=== PATIENT | male | born 1945 | race Caucasian/White ===

== ENCOUNTER 2021-03-21 12:46 | Emergency (ER) | payer MEDICARE ==
[~2021-03-21] VITALS: Ht 180.3 cm; Wt 91.0 kg
[2021-03-21] MEDS ORDERED: DIPH,PERTUSS(ACELL),TET VAC/PF 0.5 ML SYRINGE. VAX IM ONE (13:15)
--- NOTE | 2021-03-21 13:54 | PHYS DOC ---
Past Medical History Past Surgical History: Other Additional Past Surgical Histo: both legs, General Adult EDM: Chief Complaint: LACERATION/AVULSION HPI: HPI: Patient is a 75-year-old male who presents to the emergency department complaining of a laceration to his left pointer finger tip, patient reports he was sawing some boards with a table saw at approximately 1240 this morning when the sawblade caught his left pointer finger tip. Patient reports he immediately washed with soap and water and came to the emergency department for evaluation. Patient reports his pain at a 3 out of 10. Patient reports his last tetanus immunization was greater than 5 years ago, states he takes metoprolol for blood pressure and atorvastatin for hypercholesterol, takes no other medications at home. Has not taken pain medications for this current injury. Patient denies allergies to medications. Denies other physical complaints or physical concerns. Review of Systems: Review of Systems: 14 body systems of review of systems have been reviewed. See HPI for pertinent positives and negative responses, otherwise all other systems are negative, nonpertinent or noncontributory. Constitutional: Negative except as outlined in HPI above. Skin: Negative except as outlined in HPI above. Eyes: Negative except as outlined in HPI above. HENT: Negative except as outlined in HPI above. Respiratory: Negative except as outlined in HPI above. Cardiovascular: Negative except as outlined in HPI above. GI: Negative except as outlined in HPI above. : Negative except as outlined in HPI above. Musculoskeletal: Negative except as outlined in HPI above. Integument: Negative except as outlined in HPI above. Neurologic: Negative except as outlined in HPI above. Endocrine: Negative except as outlined in HPI above. Lymphatic: Negative except as outlined in HPI above. Psychiatric: Negative except as outlined in HPI above. Heart Score: C/O Chest Pain: No Risk Factors: Risk Factors: DM, Current or recent (<one month) smoker, HTN, HLP, family history of CAD, obesity. Risk Scores: Score 0 - 3: 2.5% MACE over next 6 weeks - Discharge Home Score 4 - 6: 20.3% MACE over next 6 weeks - Admit for Clinical Observation Score 7 - 10: 72.7% MACE over next 6 weeks - Early Invasive Strategies Current Medications: Current Medications Medications (Trade) Dose Ordered Sig/Oly Start Time Stop Time Status Last Admin Dose Admin Diphtheria/ Tetanus/Acell Pertussis (ADACEL TDap SYRINGE) 0.5 ml ONCE ONCE 03/21/21 13:15 03/21/21 13:18 DC 03/21/21 13:31 0.5 ML Allergies: Allergies: Allergies Coded Allergies Type Severity Reaction Last Updated Verified No Known Drug Allergies 03/21/21 No Physical Exam: PE: Constitutional: Well developed, well nourished, no acute distress, non-toxic appearance. 75-year-old male holding a bandage around his left index fingertip otherwise in no apparent distress. HENT: Normocephalic, atraumatic. Eyes: Conjunctiva normal, no discharge. Neck: Normal range of motion, no stridor. Cardiovascular: No cyanosis appreciated, distal cap refill less than 2 seconds. Lungs & Thorax: Patient is in no respiratory distress, no audible adventitious lung sounds appreciated. Abdomen: Nontender, no abnormalities noted. Skin: Warm, dry, no erythema, no rash. See extremity note for focused skin examination. Back: No tenderness, no deformities. Extremities: No tenderness, no cyanosis, no clubbing, ROM intact, no edema. Except for left pointer finger distal fingertip medial aspect has 1 cm avulsion injury without obvious bony involvement. Partial fingernail avulsion. Bleeding controlled with bandage. Distal cap refill less than 2 seconds. 2+ radial pulse of the left and right upper extremity. No crepitus appreciated with palpation, full flexion-extension of left index finger tip finger joints. Neurologic: Alert and oriented X 3, normal motor function, normal sensory function, no focal deficits noted. Psychologic: Affect normal, judgement normal, mood normal. Current Patient Data: Vital Signs: Vital Signs Date Time Temp Pulse Resp B/P (MAP) Pulse Ox O2 Delivery O2 Flow Rate FiO2 03/21/21 12:50 98.3 72 18 159/83 (108) 96 Room Air 98.3 EKG: EKG: [] Radiology/Procedures: Radiology/Procedures: REASON: att. pointer finger distal tip avulsion injury PROCEDURE: FINGER(S) LEFT XR FINGER(S)_LEFT 2+VIEWS_RT Clinical indications: Reason: att. pointer finger distal tip avulsion injury / Spl. Instructions: / History: Findings: There is a small defect of the medial aspect of the distal tuft of the second distal phalanx. No fracture is seen elsewhere. No dislocation is evident. 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 IMPRESSION: Small osseous defect of the medial aspect of the distal tuft of the second distal phalanx in association with a soft tissue amputation injury of the medial tip of the second digit. No radiopaque foreign body of the second digit. Electronically signed by: Blaine Vásquez MD (03/21/2021 2:05 PM) [id number] Course & Med Decision Making: Course & Med Decision Making Pertinent Labs and Imaging studies reviewed. (See chart for details) 75-year-old male, vital signs reviewed, presents emergency department concerning a table saw injury to the left pointer finger distal tip. Physical examination and presentation consistent with patient's explanation of events. This is a s kin avulsion injury with partial fingernail involvement, will order x-ray to evaluate bony structures of the finger. Will bring patient's tetanus immunization up-to-date today in the emergency department with Adacel Tdap. Offered p.o. pain medication for 3 out of 10 pain, patient refused at this time. The avulsion injury wound is no longer bleeding at this time. Called and discussed patient case and ED work-up with [facility]'s hand surgeon specialist Dr. Naik who recommends soaking in Betadine solution for 15 minutes, started on p.o. Keflex 4 times daily x10 days, partial closure of avulsion injury to assist bringing wound edges together, dressed with tube gauze, give his office information to patient to make appointment to be seen tomorrow or the next day. Discussed Dr. Naik's discharge and follow-up planning with patient who is amenable to this. See laceration repair note. Patient started on 500 mg Keflex p.o. in the ED today. Patient gave verbal understanding of suture care/wound care, strict follow-up with Dr. Naik tomorrow we will call for appointment, return to ER precautions or concerns, discussed with the patient all findings and diagnostic testing as well as the need to follow-up with their primary care provider for further evaluation and treatment or return to the ED if any new or worsening symptoms. Strict return precautions were also discussed at length, the patient voiced understanding and agreement with the discharge planning. The patient was nontoxic in appearance, in no apparent distress, and hemodynamically stable at the time of disposition. Dragon Disclaimer: Dragon Disclaimer: This electronic medical record was generated, in whole or in part, using a voice recognition dictation system. Laceration Repair Lac Repair Indication: Avulsion laceration of left #2 digit fingertip medial aspect. Time: 1500 Confirmed: Patient, procedure, side, and site correct. Consent: Patient, has given verbal consent. Description/repair Procedure: The patient was placed in the appropriate position and anesthesia around the laceration was achieved with a digital block using 6 cc of 2% lidocaine without epinephrine. The area was first soaked in Betadine solution for 15 minutes, after a 15-minute air dry, the digital block was achieved, the avulsion/laceration site was vigorously irrigated with 1000 cc normal saline. The laceration was explored for foreign bodies, there were no visual foreign bodies appreciated.. The avulsion/laceration edges were brought together loosely with 3 interrupted sutures using 4-0 nylon. The wound area was then dressed with bacitracin, nonadherent gauze, tube gauze by ED nursing staff. Complexity: Single layer. Post procedure exam: Circulation, motor, sensory examination intact, bleeding controlled. Total repaired wound length: 1 cm diameter. Other Items: The patient's tetanus immunization was brought up-to-date today in the emergency department with Adacel/Tdap. The patient tolerated the procedure well. Complications: Avulsion laceration difficult to approximate wound edges, loosely brought together with nylon suture. Performed by: Evangelista Todd, TELEPHONE ANSWERING SERVICE OPERATOR-C Supervision: Dr. Grant was present for consult regarding the critical aspects of the procedure including closure and post procedure exam. Total time: 30 minutes. Departure Departure Impression: Primary Impression: Laceration of finger of left hand with complication Qualified Codes: S61.412A - Laceration without foreign body of left hand, initial encounter Additional Impressions: Need for Tdap vaccination Open fracture of tuft of distal phalanx of finger Disposition: HOME / SELF CARE / HOMELESS Condition: GOOD Referrals: NON,STAFF (PCP) Patient Instructions: Fingertip Injuries and Amputations, Fingertip Laceration Additional Instructions: You were seen today for a laceration of your left hand pointer finger tip after an incident with a table saw blade. There was a piece of your skin and muscle tissue missing from the area, this is called and an avulsion injury. The avulsion injury was loosely brought together with 3 sutures that will require removal in 7 to 10 days however as we discussed please call today or tomorrow for an appointment to see Dr. Naik who is a plastic surgeon/hand surgeon. Please follow his recommendations for ongoing care of this fingertip injury and suture removal care. Please leave the dressing we placed in the emergency department today in place until removed by Dr. Naik, you should see him today tomorrow or the next day for evaluation. I have provided Dr. Naik's address and office telephone number to make an appointment. I am prescribing you pain medications as well as antibiotics, please take as directed until complete or otherwise directed by Dr. Naik. Please return to the emergency department for worsening symptoms or other concerns. Thank you for visiting our Emergency Department. It was a pleasure taking care of you today in the emergency department and we appreciate you trusting us with your care. If any additional problems come up don't hesitate to return to visit us. Please follow up with your primary care provider so they can plan additional care if needed and know about the problem that you had. If symptoms worsen come back to the Emergency Department. Any concerning symptoms that start such as chest pain, shortness of air, weakness or numbness on one side of the body, running high fevers or any other concerning symptoms return to the ER. Your tetanus immunization was brought up-to-date today in the emergency department with a medication called Adacel/Tdap, please update your immunization records accordingly. Rohith Dietrich MD [facility] [address] [place] [address], [address] [place] [address] Telephone number [phone] EMERGENCY DEPARTMENT GENERAL DISCHARGE INSTRUCTIONS Thank you for coming to [facility] (ED) today and trusting us with you care. We trust that you had a positive experience in our Emergency Department. If you wish to speak to the department management, you may call the Director at [phone]. YOUR FOLLOW UP INSTRUCTIONS ARE FOLLOWS: 1. Do you have a private Doctor? If you do not have a private doctor, please ask for a resource list of physicians or clinics that may be able to assist you with follow up care. 2. The Emergency Physicain has interpreted your x-rays. The X-Ray specialist will also review them. If there is a change in the findings, you will be notified in 48 hours when at all possible. 3. A lab test or culture has been done, your results will be reviewed and you will be notified if you need a change in treatment. ADDITIONAL INSTRUCTIONS AND INFORMATION: 1. Your care today has been supervised by a physician who is specially trained in emergency care. Many problems require more than one evaluation for a complete diagnosis and treatment. We recommend that you schedule your follow up appointment as recommended to ensure complete treatment of you illness or injury. If you are unable to obtain follow up care and continue to have a problem, or if your condition worsens, we recommend that you return to the ED. 2. We are not able to safely determine your condition over the phone nor are we able to give sound medical advice over the phone. For these safety reasons, if you call for medical advice we will ask you to come to the ED for further evaluation. 3. If you have any questions regarding these discharge instructions please call the ED at [phone]. SAFETY INFORMATION: In the interest of safety, wellness, and injury prevention; we encourage you to wear your sealbelt, if you smoke; quite smoking, and we encourage family to use a protective helmet for bicycling and other sporting events that present an increased risk for head injury. IF YOUR SYMPTOMS WORSEN OR NEW SYMPTOMS DEVELOP, OR YOU HAVE CONCERNS ABOUT YOUR CONDITION; OR IF YOUR CONDITION WORSENS WHILE YOU ARE WAITING FOR YOUR FOLLOW UP APPOINTMENT; EITHER CONTACT YOUR PRIMARY CARE DOCTOR, THE PHYSICIAN WHOSE NAME AND NUMBER YOU WERE GIVEN, OR RETURN TO THE ED IMMEDIATELY. Scripts Hydrocodone Bit/Acetaminophen (HYDROCODONE-APAP 5-325 ) 1 Tab Tablet 1 TAB PO PRN Q6HRS PRN for SEVERE PAIN 7-10, #10 TAB 0 Refills Prov: EVANGELISTA QUIROGA PATCH WASHER 03/21/21 Ibuprofen (IBUPROFEN) 600 Mg Tablet 600 MG PO PRN Q6HRS PRN for INFLAMMATION, #30 TAB 0 Refills Prov: EVANGELISTA QUIROGA PATCH WASHER 03/21/21 Cephalexin (CEPHALEXIN) 500 Mg Tablet 1 TAB PO QID for finger tip avulsion injury, #40 TAB 0 Refills Prov: EVANGELISTA QUIROGA PATCH WASHER 03/21/21 EVANGELISTA QUIROGA APRN Mar 21, 2021 13:54
--- NOTE | 2021-03-21 14:07 | RAD ---
XR FINGER(S)_LEFT 2+VIEWS_RT Clinical indications: Reason: att. pointer finger distal tip avulsion injury / Spl. Instructions: / History: Findings: There is a small defect of the medial aspect of the distal tuft of the second distal phala nx. No fracture is seen elsewhere. No dislocation is evident. Degenerative osteoarthritis of the inte rphalangeal joints and second metacarpal phalangeal joint is seen. IMPRESSION: Small osseous defect of the medial aspect of the distal tuft of the second distal phalanx in association with a soft tissue amputation injury of the medial tip of the second digit. No radiop aque foreign body of the second digit. Electronically signed by: Blaine Vásquez MD (03/21/2021 2:05 PM) [id number]
[2021-03-21] MEDS ORDERED: CEPHALEXIN 250 MG CAPSULE. PO STA (14:27)
[2021-03-21] MEDS ORDERED: ceFAZolin SODIUM IV Push 1 GM VIAL. IVP ONE (14:30)
[2021-03-21] MEDS ORDERED: LIDOCAINE 2% Multi-Dose 20 ML VIAL. IJ ONE (15:15)
[2021-03-21] MEDS ORDERED: BACITRACIN TOPICAL OINT PACKET. TP ONE ×2 (15:18→15:45)
[2021-03-21] MEDS ORDERED: CEPH500T PO (15:39)
[2021-03-21] MEDS ORDERED: IBUP-1007 PO (15:39)
[2021-03-21] MEDS ORDERED: HYDR-2761 PO (15:39)
[2021-03-21 15:45] VITALS: BP 140/76
== END 2021-03-21 15:45 | disposition home or self-care (01) ==
LOC: ER 12:46
DX: S61.211A Laceration without foreign body of left index finger without damage to nail, initial encounter (principal); Y28.8XXA Contact with other sharp object, undetermined intent, initial encounter; Y93.89 Activity, other specified; Y92.89 Other specified places as the place of occurrence of the external cause; Y99.8 Other external cause status
CPT/HCPCS: 12001; 73140; 90471; 90715; 99283

== ENCOUNTER 2021-03-31 11:36 | Emergency (ER) | payer MEDICARE ==
[~2021-03-31] VITALS: Ht 180.3 cm; Wt 88.1 kg
[~2021-03-31 11:36] MED LIST: CEPH500T PO; HYDR-2761 PO; IBUP-1007 PO
[2021-03-31 11:44] VITALS: BP 167/80
--- NOTE | 2021-03-31 12:12 | PHYS DOC ---
Past Medical History Past Surgical History: Other Additional Past Surgical Histo: both legs, Smoking Status: Former Smoker Alcohol Use: None General Adult EDM: Chief Complaint: SUTURE/STAPLE REMOVAL HPI: HPI: Patient is a 75 year old male who presents for suture removal. 10 days ago, patient cut the end of his finger with a table saw. He reports he has been compliant with antibiotics and wound care. Patient has no complaints on wound healing. Review of Systems: Review of Systems: ROS negative except as mentioned in HPI. Heart Score: C/O Chest Pain: No Allergies: Allergies: Allergies Coded Allergies Type Severity Reaction Last Updated Verified No Known Drug Allergies 03/21/21 No Physical Exam: PE: Constitutional: Well developed, well nourished, no acute distress, non-toxic appearance. Cardiovascular: Heart rate regular rhythm, no murmur. Lungs & Thorax: Bilateral breath sounds clear to auscultation. Skin: Wound appears to be healing well with remaining scab. No discharge, active bleeding, necrosis or dehiscence noted. Skin otherwise warm, dry, no erythema, no rash. Current Patient Data: Vital Signs: Vital Signs Date Time Temp Pulse Resp B/P (MAP) Pulse Ox O2 Delivery O2 Flow Rate FiO2 03/31/21 11:44 97.4 62 17 167/80 (109) 95 Room Air 97.4 Course & Med Decision Making: Course & Med Decision Making Pertinent Labs and Imaging studies reviewed. (See chart for details) Patient presentation straightforward for suture removal. Patient has no complaints on wound healing. Wound is healing appropriately. Sutures removed without complication. Patient will be discharged home. Nilson Disclaimer: Nilson Disclaimer: This electronic medical record was generated, in whole or in part, using a voice recognition dictation system. Departure Departure Impression: Primary Impression: Visit for suture removal Disposition: HOME / SELF CARE / HOMELESS Condition: STABLE Referrals: ERNESTO ALBARADO MD (PCP) Patient Instructions: Suture Removal LATESHA VILLAREAL Mar 31, 2021 12:12
== END 2021-03-31 12:20 | disposition home or self-care (01) ==
LOC: ER 11:36
DX: S61.211D Laceration without foreign body of left index finger without damage to nail, subsequent encounter (principal); Z87.891 Personal history of nicotine dependence; X58.XXXD Exposure to other specified factors, subsequent encounter
CPT/HCPCS: 99281